=== PATIENT | female | born 1930 ===

== ENCOUNTER 2016-08-08 15:30 | Emergency (ER) | payer MEDICARE ==
[2016-08-08 15:39] VITALS: RESP 18
--- NOTE | 2016-08-08 16:12 | C.PDOC ---
History Of Present Illness A 85 year old female, with a history of HTN, presents to the emergency room s/p a mechanical fall outside. Patient states that she tripped on an uneven sidewalk and fell forward, landing on her face. Patient notes left shoulder pain and a mild headache. Patient denies any LOC, sensory changes, numbness, weakness, or any other complaints. Patient notes that she is not on any blood thinners. - HPI Time Seen by Provider: 08/08/16 16:02 Chief Complaint (Nursing): Trauma History Per: Patient History/Exam Limitations: no limitations Onset/Duration Of Symptoms: Hrs Injury Occurred (Timing): Just Before Arrival Location Of Injury: Left: Shoulder Severity: Mild Recent travel outside of the [place]: No - Fall Fall:Prior To Injury: Tripped Past Medical History Reviewed: Historical Data, Nursing Documentation, Vital Signs Vital Signs: Last Vital Signs Temp 98.6 F 08/08/16 17:54 Pulse 77 08/08/16 17:54 Resp 18 08/08/16 17:54 BP 138/75 08/08/16 17:54 Pulse Ox 97 08/08/16 17:54 - Medical History PMH: HTN Family History: States: No Known Family Hx - Social History Hx Alcohol Use: No Hx Substance Use: No - Immunization History Hx Tetanus Toxoid Vaccination: Yes Hx Influenza Vaccination: No Hx Pneumococcal Vaccination: No Review Of Systems Except As Marked, All Systems Reviewed And Found Negative. Constitutional: Negative for: Fever, Chills Gastrointestinal: Negative for: Nausea, Vomiting, Diarrhea Musculoskeletal: Positive for: Shoulder Pain (Left shoulder pain) Neurological: Positive for: Headache Physical Exam - Physical Exam Appears: Non-toxic Skin: Ecchymosis (Mild ecchymosis inferior to right orbit.) Head: Abrasion (Small abrasion to the bridge of the nose and laceration, thru and thru to upper lip, well approximated. 1-2cm, no tooth mobility) Eye(s): bilateral: Normal Inspection Ear(s): Bilateral: Normal Nose: Normal, No Discharge, No Epistaxis, No Deformity, No Tenderness Oral Mucosa: Moist Neck: Normal ROM, No Midline Cervical Tenderness, No Paracervical Tenderness, No Step Off Deformity, Supple Chest: Symmetrical, No Deformity, No Tenderness Cardiovascular: Rhythm Regular Respiratory: Normal Breath Sounds, No Rales, No Rhonchi, No Wheezing Gastrointestinal/Abdominal: Soft, No Tenderness, No Guarding, No Rebound Back: No CVA Tenderness, No Vertebral Tenderness, No Paraspinal Tenderness, No Other (No cervical, thoracic, and lumbar tenderness or step off. ) Extremity: Normal ROM, Tenderness (Left shoulder mild swelling and tenderness. Pain with ROM.), No Pedal Edema, No Calf Tenderness, No Deformity, Swelling, Other (Extremities neurovascularly intact.) Neurological/Psych: Oriented x3, Normal Speech, Normal Cognition, Normal Motor, Normal Sensation Gait: Steady ED Course And Treatment O2 Sat by Pulse Oximetry: 98 Medical Decision Making Medical Decision Making: Plan: -- Head CT -- Maxillofacial CT -- Left Shoulder X-ray -- Tylenol & Tetanus head ct neg, xr shows proximal humerus fx. sling given. neurovasc intact. advise outpt f/u dermabond to nose, pt refuses lac repair of lip Disposition - Disposition Referrals: Gutierrez Ramírez MD [Staff Provider] - Disposition: HOME/ ROUTINE Disposition Time: 03:00 Condition: GOOD Additional Instructions: please see specialist. return to er with worsening symptoms or concerns. Prescriptions: Naproxen [Naprosyn] 500 mg PO BID PRN #14 tablet PRN Reason: Pain, Mild (1-3) traMADol [Ultram] 25 mg PO Q6 #10 tab Instructions: Arm Fracture in Adults (ED), Fall Prevention for Older Adults (ED ) - Clinical Impression Clinical Impression: Humerus fracture, Fall - Scribe Statement The provider has reviewed the documentation as recorded by the Tadeoibju Rico All medical record entries made by the Tadeoibju were at my direction and personally dictated by me. I have reviewed the chart and agree that the record accurately reflects my personal performance of the history, physical exam, medical decision making, and the department course for this patient. I have also personally directed, reviewed, and agree with the discharge instructions and disposition.
--- NOTE | 2016-08-08 16:46 | CT ---
PROCEDURE: CT HEAD WITHOUT CONTRAST. HISTORY: trauma COMPARISON: None available. TECHNIQUE: Axial computed tomography images were obtained through the head/brain without intravenous contrast. Radiation dose: Total exam DLP = 707.44 mGy-cm. This CT exam was performed using one or more of the following dose reduction techniques: Automated exposure control, adjustment of the mA and/or kV according to patient size, and/or use of iterative reconstruction technique. FINDINGS: HEMORRHAGE: No intracranial hemorrhage. BRAIN: Focal encephalomalacia at the left frontal lobe is noted could be due to prior injury or infarct. [id number] white matter changes are noted suggestive but nonspecific for chronic microvascular ischemic disease. VENTRICLES: Unremarkable. No hydrocephalus. CALVARIUM: Unremarkable. PARANASAL SINUSES: Unremarkable as visualized. No significant inflammatory changes. MASTOID AIR CELLS: Unremarkable as visualized. No inflammatory changes. OTHER FINDINGS: None. IMPRESSION: No evidence of acute intracranial hemorrhage. Focal encephalomalacia at the left frontal lobe. Mild to moderate atrophy and white matter changes suggestive of chronic microvascular ischemic disease.
[2016-08-08] MEDS ORDERED: Naproxen 550 mg Tab PO STA (16:53)
--- NOTE | 2016-08-08 16:55 | CT ---
PROCEDURE: CT MAXILLOFACIAL BONES WITHOUT CONTRAST HISTORY: trauma COMPARISON: None TECHNIQUE: Contiguous axial CT images of the maxillofacial bones were obtained. Coronal and sagittal reformats were generated. Radiation dose: Total exam DLP = 718.10 mGy-cm. This CT exam was performed using one or more of the following dose reduction techniques: Automated exposure control, adjustment of the mA and/or kV according to patient size, and/or use of iterative reconstruction technique. FINDINGS: NASAL BONES: Unremarkable. ORBITS: Unremarkable. PARANASAL SINUSES/ MASTOIDS: Minimal chronic bilateral maxillary sinusitis MAXILLA: . A right maxillary canine shows extensive periapical lucency. MANDIBLE/ TEMPOROMANDIBULAR JOINTS: Unremarkable. SKULL BASE: Unremarkable. TEMPORAL BONES: Middle ears and mastoid grossly unremarkable. OTHER FINDINGS: None. IMPRESSION: No evidence of facial fracture. Right maxillary periapical lucency. Minimal chronic bilateral maxillary sinusitis.
[2016-08-08] MEDS ORDERED: Naproxen 550 mg Tab PO ONE (17:03)
[2016-08-08 17:54] VITALS: BP 138/75; PULSE 77; TEMP 98.6
--- NOTE | 2016-08-09 07:56 | RAD ---
Left shoulder three views History: Fracture. Comparison: None available. Findings: Prominent fracture deformity of the left proximal humerus involving the humeral neck and greater tuberosity. Mild distraction at the greater tuberosity. Mild narrowing of the glenohumeral joint space. Moderate degenerative changes of the acromioclavicular joint space with bony hypertrophy. Impression: Fracture deformity of the left proximal humerus.
--- NOTE | 2016-08-09 07:58 | RAD ---
Left humerus three views History: Fracture. Comparison: None available. Findings: Prominent fracture deformity of the left proximal humerus involving the humeral neck and greater tuberosity with mild distraction at the greater tuberosity. Humeral head is located. Impression: Fracture deformity of the left proximal humerus.
[2016-08-11 07:34] VITALS: O2SAT 98
== END 2016-08-08 17:57 | disposition home or self-care (01) ==
LOC: C.ER 15:30
DX: S42.252A Displaced fracture of greater tuberosity of left humerus, initial encounter for closed fracture (principal); S01.511A Laceration without foreign body of lip, initial encounter; S00.31XA Abrasion of nose, initial encounter; W01.0XXA Fall on same level from slipping, tripping and stumbling without subsequent striking against object, initial encounter; Y93.01 Activity, walking, marching and hiking; Y92.480 Sidewalk as the place of occurrence of the external cause

== ENCOUNTER 2018-05-06 08:08 | Outpatient (CLI) | payer MEDICARE, OTHER | END 2018-05-06 08:09 | disposition home or self-care (01) | LOC: C.LAB 08:08 | DX: E78.2 Mixed hyperlipidemia (principal) ==

== ENCOUNTER 2018-08-06 08:02 | Outpatient (CLI) | payer MEDICARE, OTHER | END 2018-08-06 08:03 | disposition home or self-care (01) | LOC: C.LAB 08:02 | DX: E78.2 Mixed hyperlipidemia (principal); R73.9 Hyperglycemia, unspecified ==